=== PATIENT | male | born 1995 | race Asian ===

== ENCOUNTER 2018-02-10 10:25 | Emergency (ER) | payer OTHER ==
[~2018-02-10] VITALS: Ht 172.7 cm; Wt 96.6 kg
== END 2018-02-10 12:04 | disposition home or self-care (01) ==
LOC: ED 10:25
DX: M51.27 Other intervertebral disc displacement, lumbosacral region (principal); V59.40XA Driver of pick-up truck or van injured in collision with unspecified motor vehicles in traffic accident, initial encounter
CPT/HCPCS: 99283

== ENCOUNTER 2018-03-10 09:05 | Outpatient (CLI) | payer OTHER | END 2018-03-10 18:52 | disposition home or self-care (01) | LOC: MRI 09:05 | DX: M51.26 Other intervertebral disc displacement, lumbar region (principal) ==

== ENCOUNTER 2020-11-28 16:17 | Inpatient (IN) | payer OTHER ==
[~2020-11-28] VITALS: Ht 170.2 cm; Wt 95.3 kg
--- NOTE | 2020-11-28 10:07 | NUR ---
Patient requested to go to the bathroom to have a bowel movement. Patient disconnected from monitors and portable o2 at the bedside. Patient stated he wanted to go to the bathroom without it since it was causing his nose to hurt. Patient noted in no respiratory distress so this nurse supervised as he ambulated to ICU bathroom without assistance or o2. Patient in the bathroom approx. 8-10 minutes checking on him frequently with patient expressing no concern of being in respiratory distress. After patient had bowel movement he ambulated back to PCU 2 and placed back on monitors with patients 02 sats reading 88% on RA and slowly increasing to 91%. Patient placed back on 02 at 2 LPM via NC and O2 sats increasing to 97%.
[2020-11-28 16:40] VITALS: BP 127/77; TEMP 98.7; Ht 170.2 cm; Wt 95.3 kg
--- NOTE | 2020-11-28 17:00 | NUR ---
20G L HAND X1 ATTEMPT PER LIDYA BRUNO RN. NS @100,L/HR INFUSING.
--- NOTE | 2020-11-28 17:30 | NUR ---
SEMIFOWLERS BP 135/81, P86, 02 97% W/2L, STANDING 148/87, P106, 94% NO 02.
--- NOTE | 2020-11-28 17:33 | NUR ---
CHEST RAY DONE
--- NOTE | 2020-11-28 17:49 | NUR ---
CEFTRIAXONE 1 GM SCANNED BUT HELD DUE TO BLOOD CULTURES NOT DRAWN YET.
[2020-11-28 17:57] VITALS: BP 119/67
--- NOTE | 2020-11-28 17:59 | NUR ---
LAB IN FOR BLOOD DRAW/CULTURES
[2020-11-28 18:14] LABS: PLATELET COUNT 268 K/uL (142-355)
[2020-11-28 18:47] LABS: POTASSIUM 3.9 mmol/L (3.6-5.2); SODIUM 142 mmol/L (136-145)
[2020-11-28 19:00] VITALS: BP 121/73
--- NOTE | 2020-11-28 19:50 | NUR ---
Shift assessment completed at this time with patient noted sitting up in high fowlers position with 02 at 2LPM via NC and sats maintaining 96-97%. No acute respiratory distress is noted with patient on the phone with his mother. Ascultated lungs and they are all clear bilaterally with no adventitious breath sounds noted. Patient however does report a productive cough with sputum slighlty pink/blood tinged. Patient denies any pain N/V/D. Patient is continent of both urine and BM. On assessment orders patient does have a order for Remedesivir and Convalescent Plasma per . Patient provided information regarding medication and plasma. Patient then signed consent forms and they were faxed to appropriate departments with original copies placed in the chart. Will continue to monitor as needed.
[2020-11-28 20:00] VITALS: BP 121/73; TEMP 99.1
--- NOTE | 2020-11-28 20:50 | NUR ---
NOTIFIED LENCHO ALBRECHT, PHARMACIST, OF NEW ORDER FOR REMDESIVIR. PHARMACIST ADVISED AT THIS TIME, BASED ON LABS AND VITALS, PATIENT DOES NOT QUALIFY. PHARMACIST REPORTS SHE WILL REVIEW SAME IN THE AM AND SPEAK WITH DR. BRIDGES AND STEPHANE LIU RN, REGARDING SAME.
[2020-11-28 22:00] VITALS: BP 115/75
--- NOTE | 2020-11-28 22:10 | NUR ---
Patient requested to go to the bathroom to have a bowel movement. Patient disconnected from monitors and portable 02 at the bedside. Patient stated he wanted to go to the bathroom without it since it was causing his nose to hurt. Patient noted in no respiratory distress so this nurse supervised as he ambulated to ICU bathroom without assistance or O2. Patient in the bathroom approx. 8-10 minutes checking on him frequently with patient expressing no concern of being in respiratory distress. After patient had bowel movement he ambulated back to PCU 2 and placed back on monitors with patients 02 sats reading 88% on RA and slowly increasing to 91%. Patient placed back on O2 at 2 LPM via NC and 02 sats increasing to 97%. Will continue to monitor closely.
--- NOTE | 2020-11-28 22:13 | NUR ---
Notified that all documents were faxed to pharmacy regarding remedsevir including consents. Did inform that pharmacy had to go through process of assessing patiens labs and VS to see if he qualified for medication and that the patient would most likely receive medication in the morning once pharmacy approves. No new orders were given at this time.
[2020-11-28 23:00] VITALS: BP 100/56
[2020-11-29] VITALS (25 sets, daily range): BP systolic 97–124; BP diastolic 55–73; TEMP 98.3–99
--- NOTE | 2020-11-29 01:17 | NUR ---
Convalescent plasma started at this time. Patient currently tolerating well. Will continue to monitor for any s/s of acute reaction.
--- NOTE | 2020-11-29 02:26 | NUR ---
Convalescent plasma continues to infuse with no s/s of reaction noted. Patient is resting quietly with eyes closed. Current 02 sats 97% on 2LPM via NC.
--- NOTE | 2020-11-29 03:35 | NUR ---
UNIT OF CONVALESCENT PLASMA COMPLETED AT THIS TIME. PATIENT IS DOING WITH NO SIGNS OF REACTION NOTED. VSS. BLOOD BAG TAKEN TO THE LAB WELL.
[2020-11-29 05:42] LABS: PLATELET COUNT 276 K/uL (142-355)
[2020-11-29 06:00] LABS: POTASSIUM 4.2 mmol/L (3.6-5.2)
--- NOTE | 2020-11-29 06:38 | NUR ---
Patient is resting quietly with eyes closed. No acute distress is noted at this time will continue to monitor. Spo2 96%.
--- NOTE | 2020-11-29 07:30 | NUR ---
MARINA DAHL RN [facility] CALLED ME AND ASKED IF PT HAD REC'D REMDESIVIR LAST NITE. DR HARP HAD CALLED HER ASKING IF PT HAD REC'D IT
--- NOTE | 2020-11-29 07:41 | NUR ---
DR HARP CALLED AND ASKED IF PT REC'D REMDESIVIR LAST NITE. EXPLAINED NO THAT PRIOR SHIFT HAD SPOKE WITH LENCHO IN PHARM AND AT THAT TIME PT DID NOT MEET CRITERIA. HOWEVER, I WAS INFORMED FROM PRIOR SHIFT THAT LENCHO WOULD REVIEW PT'S HISTORY AND LET ME KNOW WHAT TO INFORM
--- NOTE | 2020-11-29 10:00 | NUR ---
SPOKE WITH LENCHO IN PHARM AND ASKED AGAIN IF PT WOULD BE ABLE TO GET REMEDISIVIR ORDERED. SHE SAID THAT SHE WAS GOING TO TALK TO DR BRIDGES AND WOULD LET ME KNOW.
--- NOTE | 2020-11-29 14:00 | NUR ---
DR SANTACRUZ HERE MAKING ROUNDS AT THIS TIME. FORM FILLED OUT FOR PT TO OBTAIN REMDESIVIR [facility] S[facility] TO [facility] NOTIFIED.
--- NOTE | 2020-11-29 14:45 | NUR ---
FIRST DOSE OF REMDESIVIR STARTED AT THIS TIME.
--- NOTE | 2020-11-29 16:45 | NUR ---
PT CO "ITCHING AND FULLNESS IN BOTH EARS" DR SALDIVAR CALLED AND INFORMED OF NEW CO AND NEW ORDERS REC'D FOR FLONASE AND ZRYTEC AT THIS TIME.
--- NOTE | 2020-11-29 20:05 | NUR ---
PATIENT C/O OF PAIN AND PRESSURE BEHIND ELIA EYES. NOTIFIED DR. HARP. RECEIVED NEW ORDER FOR TORADOL 30MG IVP Q8 HOURS PRN FOR PAIN, NOTED AND CARRIED OUT. PATIENT REPORTS PAIN IS A 5/10 NUMERIC PAIN SCALE.
--- NOTE | 2020-11-29 21:15 | NUR ---
PATIENT REPORTS PAIN AND PRESSURE TO EYES IS A 2/10 NUMERIC PAIN SCALE. PATIENT IS IN RECLINER AT BEDSIDE WATCHING TV, CALL LIGHT WITHIN REACH AND BEDSIDE TABLE WITH PERSONAL BELONGINGS WITHIN REACH.
--- NOTE | 2020-11-29 21:45 | NUR ---
PROVIDED PATIENT A RECLINER AT BEDSIDE. PATIENT TRANSFERRED FROM BED TO RECLINER AND WATCHING TV AT THIS TIME. BEDSIDE TABLE WITH PERSONAL BELONGINGS WITHIN REACH AND CALL LIGHT AT PATIENT'S SIDE. PATIENT DENIES ANY FURTHER NEEDS OR C/O AT THIS TIME. EDUCATED PATIENT ON IMPORTANCE OF AMBULATION, TURNING WHILE IN BED, AND USING INCENTIVE SPIROMETER. PATIENT V/O UNDERSTANDING.
--- NOTE | 2020-11-29 23:50 | NUR ---
PER PATIENT'S REQUEST, SET UP SPONGE BATH IN ICU BATHROOM FOR PATIENT. PATIENT TOLERATED WELL AND DENIES ANY SHORTNESS OF BREATH, DIZZINESS OR ANY OTHER NEEDS AT THIS TIME.
[2020-11-30] VITALS (13 sets, daily range): BP systolic 94–124; BP diastolic 44–67; TEMP 98.4–98.7
--- NOTE | 2020-11-30 01:00 | NUR ---
PATIENT SITTING IN RECLINER AT BEDSIDE WATCHING TV. PATIENT DENIES ANY NEEDS OR C/O AT THIS TIME. PATIENT INSTRUCTED TO NOTIFY NURSE WHEN HE IS READY TRANSFER TO BED, PT V/O UNDERSTANDING. ENCOURAGED PATIENT TO USE INCENTIVE SPIROMETER WHILE IN RECLINER, PT V/O UNDERSTANDING.
--- NOTE | 2020-11-30 02:33 | NUR ---
ASSISTED PATIENT WITH TRANSFERRING FROM RECLINER AT BEDSIDE TO BED. CALL LIGHT WITHIN REACH AND PERSONAL BELONGINGS ON BEDSIDE TABLE WITHIN REACH. PATIENT DENIES ANY FURTHER NEEDS OR C/O AT THIS TIME.
[2020-11-30 06:12] LABS: PLATELET COUNT 319 K/uL (142-355)
[2020-11-30 06:32] LABS: POTASSIUM 3.9 mmol/L (3.6-5.2)
--- NOTE | 2020-11-30 08:00 | NUR ---
SPOKE WITH DR HARP ALL LAB RESULTS GIVEN VIA PHONE. NEW ORDERS REC'D TO TRANSFER PT TO MED SURG. WILL SEE IF BED AVAILABE. EXPLAINED TO PT AND PT VERBALIZED UNDERSTANDING.
--- NOTE | 2020-11-30 11:40 | NUR ---
PT TRANSFERED TO [facility] TO ROOM 128 VIA WC . PT AWAKE AND ALERT. IVF'S AND PUMP TRANSPORTED WITH PT TO NEW ROOM. PT STATED HE WOULD LET HIS KNOW HE WAS CHANGING LOCATIONS. NO DISTRESS NOTED. REPORT GIVEN TO CATALINA ROY ON MS
--- NOTE | 2020-11-30 16:24 | NUR ---
PT AMBULATED TO BATHROOM AND BACK WITH O2 NC ON, PT 02 REMAINED BETWEEN 94 AND 97% ON RA, PT STATES HE HAD NO SOB OR LABORED BREATHING, NO NEEDS AT THIS TIME, WILL CONTINUE TO MONITOR
--- NOTE | 2020-11-30 18:25 | NUR ---
PT STATES DR. HARP TOLD HIM TO REMOVE O2 AT THIS TIME AND TO PUT OXYGEN BACK ON IF 02 FALLS BELOW 93% OR IF HE BECOMES SYMPTOMATIC
--- NOTE | 2020-11-30 20:50 | NUR ---
ENTERED PATIENT'S ROOM AT THIS TIME. PATIENT RESTING QUIETLY IN BED WATCHING TV. 20G TO LEFT HAND INFUSING NS @ 100ML/HR. PM MEDICATION GIVEN. PATIENT IS ALERT AND ORIENTED X 4. LUNG SOUNDS ARE CLEAR. PATIENT HAS NC @ 2L TO USE IF OXYGEN <92-93%. CURRENT O2 SATURATION IS 95%. PATIENT REQUESTING TO GET A SHOWER TONIGHT, AND THIS [employer] AID INSTRUCTED HIM TO WAIT UNTIL HIS ANTIBIOTICS WERE FINISHED INFUSING. HE DENIES ANY COMPLAINTS OR CONCERNS AT THIS TIME. NAD NOTED. BED LOCKED AND IN LOWEST POSITION. CALL LIGHT WITHIN EASY REACH.
--- NOTE | 2020-11-30 23:00 | NUR ---
PATIENT CALLED AND ASKED TO GET A SHOWER. PCT TO PATIENT'S ROOM TO ASSIST AT THIS TIME.
--- NOTE | 2020-11-30 23:40 | NUR ---
PATIENT BACK IN BED AFTER A SHOWER. IN TO RESTART IV FLUIDS. 20G TO LEFT HAND LEAKING. PATIENT DENIES PAIN OR TENDERNESS. ONE ATTEMPT WAS MADE TO START A NEW IV. 22G TO RIGHT FOREARM PATENT AND INTACT. FLUSHES WELL. NS INFUSING @ 100ML/HR. 20G TO LEFT HAND D/C'd. CATHETER TIP INTACT. TELEMETRY AND CONTINUOUS PULSE OX ON PATIENT. CURRENT O2 SATURATION IS 94%. BED LOCKED AND IN LOWEST POSITION. CALL LIGHT WITHIN EASY REACH.
[2020-12-01] VITALS: BP 124/67; TEMP 98.7
[2020-12-01 04:21] VITALS: BP 104/51; TEMP 97.9
[2020-12-01 05:41] LABS: POTASSIUM 4.2 mmol/L (3.6-5.2)
[2020-12-01 05:42] LABS: PLATELET COUNT 305 K/uL (142-355)
--- NOTE | 2020-12-01 05:45 | NUR ---
IN TO CHECK ON PATIENT. RESTING QUIETLY WITH EYES CLOSED. RESPIRATIONS EVEN AND UNLABORED. NS INFUSING @ 100ML/HR. NO ACUTE DISTRESS NOTED. BED LOCKED AND IN LOWEST POSITION. CALL LIGHT WITHIN EASY REACH.
[2020-12-01 08:00] VITALS: BP 108/55; TEMP 97.1
[2020-12-01 12:00] VITALS: BP 106/54; TEMP 98.3
[2020-12-01 16:00] VITALS: BP 111/58; TEMP 98.7
== END 2020-12-01 20:27 | disposition home or self-care (01) | DRG 177 ==
LOC: PCU 16:17 → MED/SURG 11-30 11:58 → PCU 11-30 11:58 → MED/SURG 11-30 11:58
PROVIDERS: ADMIT Family Medicine; ATTEND Family Medicine
PROC: 30233K1 Transfusion of Nonautologous Frozen Plasma into Peripheral Vein, Percutaneous Approach (ICD-10-PCS; principal; 2020-11-29)
DX: U07.1 COVID-19 (principal); J18.8 Other pneumonia, unspecified organism; E46 Unspecified protein-calorie malnutrition; R55 Syncope and collapse; D64.89 Other specified anemias; R09.02 Hypoxemia; F41.8 Other specified anxiety disorders
CPT/HCPCS: 36415; 80053; 82550; 82728; 83735; 84100; 84484; 85027; 85379; 86140; 86900; 86901; 87040; 87635; 93005; 94760; J0456; J0696; J1100; J1885; P9017; U0003